=== PATIENT | male | born 1995 ===

== ENCOUNTER 2024-05-29 11:37 | Inpatient (IN) | payer MEDICAID, SELFPAY ==
--- NOTE | 2024-05-29 11:40 | ED.PSYCH ---
HPI - Psych General Chief Complaint: Psychiatric Symptoms Stated Complaint: Crisis Time Seen by Provider: 05/29/24 11:49 Source: patient Mode of arrival: ambulatory Limitations: no limitations History of Present Illness ED Provider: Luann Mak PA-C HPI Narrative: Patient is a 29 year old assigned male at with no reported medical history presenting to the emergency department today requesting to go back to [facility] but he was told to come here first. Patient refuses to explain why he would like to go back to [place] and refuses to answer any questions related to thoughts of hurting self or others. Patient states that he does not have any chest pain, abdominal pain, or any other complaints at this time. Related Data Home Medications ?Medication ?Instructions ?Recorded ?Confirmed aripiprazole 15 mg tablet 15 mg PO BEDTIME 05/30/24 05/30/24 cholecalciferol (vitamin D3) 10 10 mcg PO DAILY 05/30/24 05/30/24 mcg (400 unit) tablet (Vitamin D3) melatonin 5 mg tablet 10 mg PO BEDTIME PRN Insomnia 05/30/24 05/30/24 Allergies Allergy/AdvReac Type Severity Reaction Status Date / Time shrimp Allergy Intermediate Unknown Verified 05/29/24 11:42 Review of Systems Constitutional: Constitutional: Reports no additional constitutional complaints, Denies chills, Denies fever(s) and Denies night sweats Eyes: Eyes: Reports no additional eye complaints, Denies blurry vision, Denies change in vision, Denies diplopia, Denies eye discharge, Denies loss of vision and Denies eye pain ENT: Denies dizziness Cardiovascular: Cardiovascular: Reports no additional cardiovascular complaints, Denies chest pain, Denies lightheadedness, Denies Loss of Consciousness and Denies dyspnea Respiratory: Respiratory: Reports no additional respiratory complaints and Denies dyspnea Gastrointestinal: Gastrointestinal: Reports no additional gastrointestinal complaints, Denies abdominal pain, Denies melena, Denies hematochezia, Denies change in bowel habits and Denies change in stool character Genitourinary: Genitourinary: Reports no additional male genitourinary complaints, Denies hematuria, Denies oliguria, Denies difficulty urinating, Denies dysuria, Denies urinary frequency, Denies urinary hesitancy, Denies urinary incontinence and Denies urinary urgency Musculoskeletal: Musculoskeletal: Reports no additional musculoskeletal complaints, Denies numbness and Denies tingling Neurologic: Denies dizziness, Denies loss of vision, Denies numbness and Denies tingling Psychiatric: Comments: refuses to answer questions but states wants admission at [facility] Endocrine: Endocrine: Reports no additional endocrine complaints Hematologic/Lymphatic: Hematologic/Lymphatic: Reports no additional hematologic/lymphatic complaints Allergic/Immunologic: Allergic/Immunologic: Reports no additional allergic/immunologic complaints [facility] Past Medical History Attestation statement: The following information was validated with the patient. Source: old records reviewed and nursing notes reviewed Social History Social History Advance Directives: No Advance Directives Information Provided: Yes Do you have a plan to hurt others: No Plan Physical Exam Vital Signs: Vital Signs: Last Vital Signs Temp 97.4 F 05/31/24 07:23 Pulse 71 05/31/24 07:23 Resp 14 05/31/24 07:23 BP 127/78 05/31/24 07:23 Pulse Ox 98 05/31/24 07:23 O2 Del Method Room Air 05/31/24 07:23 BMI result Body Mass Index 27.8 Const: General: cooperative, no acute distress, alert and awake Nutritional Appearance: well nourished Orientation/consciousness: patient oriented x3 Limitations: no limitations HEENT: Head: Yes normal to inspection and Yes atraumatic Ears: hearing grossly normal bilaterally and external ears normal General nose exam: Normal external nose present, no nasal discharge noted and no epistaxis Face and sinus: Yes normal facial exam, No abrasion and No laceration Mouth: Normal oral and palatal mucosa present, no drooling and no muffled voice Eyes: General: appearance normal, both eyes and all related structures Periorbital: periorbital findings normal Eyelids: Yes eyelids normal Conjunctivae: conjunctivae normal Pupils: Equal, round and reactive pupils present EOM: EOMs intact bilaterally Neck: Neck: Yes normal visual inspection, Yes full ROM and Yes no lymphadenopathy Chest: Chest palpation & inspection: normal inspection of the chest Resp: Effort & Inspection: normal respiratory effort and able to speak in complete sentences GI: Inspection: Yes normal to inspection Neuro: General: patient oriented x3, moves all extremities and CN's II-XI intact bilaterally Cranial nerves: Yes Equal, round and reactive pupils present Cognition (Neuro): normal cognition Extrem: General: Yes normal to inspection, Yes full ROM and Yes capillary refill normal Psych: Mental Status: mental status grossly normal Affect: Labile affect present Attitude: Guarded attititude/behavior present Thought process: Circumstantial thought process present Course Course Course Narrative: This is a Rapid Medical Exam performed in triage by Marium Delgado PA-C. Full HPI, ROS and PE to be performed by primary ED provider. 29yo M presenting to the ED c/o patient was just d/c'd from [place] & wants to go back inpatient. Denies SI/HI. reports diffuse body pain PE: not engaging in hx, starring off, flat affect Plan: labs, ALVAREZ, CARE team consult Reevaluation(s) Reevaluation #1: 05/30/2024 DR. Quiñones's progress note VSS, no issues overnight reported by nurses, bed search is underway, continue with physician observation. Time: 16:04 Reevaluation #2: Time: 07:23 Date: 05/31/24 Provider: Mary Lamb, DO Patient in physician observation for psychiatric evaluation.? No acute events reported overnight. No current complaints. VS stable.? Patient is in bed search status. Will continue to monitor. Reevaluation #3: Time: 14:54 Date: 05/31/24 Provider: Mary Lamb DO Physician observation ended at 255pm. Patient to be admitted as inpatient to psychiatry Medications Administered Generic Name Dose Route Start Last Admin Trade Name Freq PRN Reason Stop Dose Admin Aripiprazole 15 mg 05/30/24 21:00 05/30/24 20:16 Aripiprazole 15 Mg Tablet PO 15 mg BEDTIME WYATT Administration Melatonin 9 mg 05/30/24 09:58 05/30/24 20:16 Melatonin 3 Mg Tablet PO 9 mg BEDTIME PRN Administration Insomnia Vitamin D 10 mcg 05/30/24 10:00 05/31/24 10:07 Cholecalciferol (Vitamin D3) 10 Mcg Tablet PO 10 mcg DAILY WYATT Administration Medical Decision Making Medical Decision Making MDM Narrative: Patient is a 29 year old assigned male at with no reported medical history presenting to the emergency department today requesting to go back to [facility] but he was told to come here first. Patient's physical exam was as noted in the physical exam portion of this note. Patient's blood work was unremarkable. I explained my physical exam findings as well as all test results to the patient. I answered all questions asked by the patient. Patient placed in observation pending CARE team evaluation. Differential Diagnosis Differential Diagnoses: The differential diagnosis associated with the presentation includes Psychosis SI HI Depression Mental health disorder / disease Admission/Observation Consideration of admission/observation: Escalation of care including admission/observation considered Patient's disposition will be determined after CARE team evaluation. Lab Data [facility] Lab Attestation statement: I reviewed the patient's lab results. My interpretation of these results are in the [facility] Rationale portion of this note. 05/29/24 13:39 05/29/24 13:39 Labs: Lab Results 05/29/24 05/31/24 Range/Units 13:39 10:38 WBC 6.4 (4.8-10.8) X10*3/uL RBC 4.69 (4.60-5.80) X10*6/uL Hgb 14.4 (14.0-18.0) g/dl Hct 40.5 L (42.0-52.0) % MCV 86.4 (80.0-98.0) fL MCH 30.7 (27.0-33.0) pg MCHC 35.6 (31.0-36.0) g/dl RDW 12.6 (11.0-16.0) % Plt Count 225 (160-400) X10*3/uL MPV 9.0 L (9.4-12.4) fL Immature Gran % (Auto) 0.3 (0.0-0.4) % Neut % (Auto) 63.3 (45-73) % Lymph % (Auto) 30.8 (20-40) % Moore % (Auto) 4.4 (2-11) % Eos % (Auto) 0.6 (0-4) % Baso % (Auto) 0.6 (0-2) % Lymph # (Auto) 2.0 (1.2-4.9) X10*3/uL Moore # (Auto) 0.3 (0.1-1.2) X10*3/uL Eos # (Auto) 0.0 (0.0-0.4) X10*3/uL Baso # (Auto) 0.0 (0.0-0.2) X10*3/uL Abs Immat Gran (auto) 0.02 (0.00-0.03) X10*3/uL Absolute Neuts (auto) 4.1 (2.0-8.3) x10*3/uL Absolute Nucleated RBC 0.000 (0.0-0.012) X10*3/uL Nucleated RBC % (auto) 0.0 (0.0-0.2) /100WBC Sodium 139 (135-145) mmol/L Potassium 4.2 (3.3-5.1) mmol/L Chloride 107 (96-108) mmol/L Carbon Dioxide 26 (22-29) mmol/L Anion Gap 10 L (12-20) BUN 12 (9-16) mg/dL Creatinine 0.89 (0.5-1.4) mg/dL Estim Creat Clear Calc 122.6 Estimated GFR > 60 Random Glucose 118 H (60-115) mg/dL Calcium 9.7 (8.4-10.2) mg/dL Total Bilirubin 0.4 (0.0-1.0) mg/dL Direct Bilirubin 0.1 (0.0-0.5) mg/dL AST 40 H (5-37) U/L ALT 48 H (0-40) U/L Alkaline Phosphatase 55 (39-117) U/L Total Protein 7.2 (6.5-8.0) g/dL Albumin 4.5 (3.5-5.0) g/dL Urine Color Yellow Urine Appearance Clear Urine pH 5.5 (5.0-9.0) Ur Specific [place] 1.020 (1.005-1.025) Urine Protein Negative (Neg-Trace) mg/dL Urine Glucose (UA) Negative (Negative) mg/dL Urine Ketones Negative (Negative) mg/dL Urine Blood Negative (Negative) Urine Nitrite Negative (Negative) Ur Leukocyte Esterase Negative (Negative) Urine Opiates Screen Not Detected (Not Detect) Ur Buprenorphine Scrn Not Detected (Not Detect) ng/mL Ur Oxycodone Screen Not Detected (Not Detect) ng/mL Urine Methadone Screen Not Detected (Not Detect) ng/mL Urine Fentanyl Screen Not Detected (Not Detect) Ur Barbiturates Screen Not Detected (Not Detect) Ur Phencyclidine Scrn Not Detected (Not Detect) Ur Amphetamines Screen Not Detected (Not Detect) U Benzodiazepines Scrn Not Detected (Not Detect) Urine Cocaine Screen Not Detected (Not Detect) U Marijuana (THC) Screen Not Detected (Not Detect) Ethyl Alcohol < 10 mg/dL Influenza Type A (PCR) NEGATIVE (Negative) Influenza Type B (PCR) NEGATIVE (Negative) RSV RNA Qual (PCR) NEGATIVE (Negative) SARS-CoV-2 RNA (RT-PCR) NEGATIVE (Negative) Critical Care Time Critical Care Time Critical Care Time: Yes Total Critical Care Time: 31 Attestation: I spent 31 minutes of Critical Care Time with this patient. This does not include time spent on separately reported billable procedures. Discharge Plan Discharge Clinical Impression: Mental health problem Patient Disposition: Admitted As Inpatient Interventions: Herman-Suicide Risk Severity Scale Last Done: 05/30/24 14:03
[2024-05-29 11:41] VITALS: BP 144/95; PULSE 74; RESP 18; TEMP 36.7; O2SAT 99; BMI 27.8
[2024-05-29 12:58] VITALS: RESP 16
[2024-05-29 13:46] LABS: Basophils Percent Auto 0.6 % (0-2); Eosinophils Percent Auto 0.6 % (0-4); Hematocrit 40.5 % (42.0-52.0); Hemoglobin 14.4 g/dl (14.0-18.0); Imm Gran Abs Auto 0.02 X10*3/uL (0.00-0.03); Imm Gran Pct Auto 0.3 % (0.0-0.4); Lymphocytes Percent Auto 30.8 % (20-40); MANUAL DIFF FLAG NO; Mean Corpuscular HGB Conc 35.6 g/dl (31.0-36.0); Mean Corpuscular Hemoglobin 30.7 pg (27.0-33.0); Mean Corpuscular Volume 86.4 fL (80.0-98.0); Monocytes Absolute Auto 0.3 X10*3/uL (0.1-1.2); Monocytes Percent Auto 4.4 % (2-11); Neutrophils Absolute Auto 4.1 x10*3/uL (2.0-8.3); Neutrophils Percent Auto 63.3 % (45-73); Platelet Count 225 X10*3/uL (160-400); Red Blood Count 4.69 X10*6/uL (4.60-5.80); Red Cell Distribution Width 12.6 % (11.0-16.0); White Blood Count 6.4 X10*3/uL (4.8-10.8)
[2024-05-29 14:02] LABS: Ethanol < 10 mg/dL
[2024-05-29 14:05] LABS: Alanine Aminotransferase 48 U/L (0-40); Albumin Level 4.5 g/dL (3.5-5.0); Alkaline Phosphatase 55 U/L (39-117); Anion Gap 10 (12-20); Aspartate Amino Transferase 40 U/L (5-37); Bilirubin Direct 0.1 mg/dL (0.0-0.5); Bilirubin Total 0.4 mg/dL (0.0-1.0); Blood Urea Nitrogen 12 mg/dL (9-16); Calcium 9.7 mg/dL (8.4-10.2); Carbon Dioxide 26 mmol/L (22-29); Chloride 107 mmol/L (96-108); Creatinine Clr Calc Pharmacy 122.6; Estimated Glomerular Filt Rate > 60; Glucose Random 118 mg/dL (60-115); Potassium 4.2 mmol/L (3.3-5.1); Sodium 139 mmol/L (135-145); Total Protein 7.2 g/dL (6.5-8.0)
--- OUTSIDE RECORDS SUMMARY | 2024-05-29 14:27 | XMS_ITS | Clinical Summary ---
Author Organization [facility] Address [address] [place] [address] Care Team Providers Care Application Integration Architect Name Role Phone Claudine Burgos NP Primary Care Provider Source Comments PLEASE NOTE, if this patient is a minor, it may be UNLAWFUL to discuss sensitive information that is contained in these records (such as FAMILY PLANNING, MENTAL HEALTH or SUBSTANCE ABUSE) with the minor patient's parent or other person without the patient's specific authorization.[facility] Allergies No known active allergies Medications ibuprofen 600 mg tabletIndications :Symptomatic irreversible pulpitis Take 1 Tablet by mouth 4 (four) times daily as needed for mild pain 20 Tablet 03/14/2022 Active ARIPiprazole (ABILIFY) 10 mg tabletIndications :Schizoaffective disorder, unspecified type ([facility]) Take 1 Tablet by mouth once daily for 90 days 30 Tablet 2 01/15/2023 Active Active Problems Problem Noted Date Diagnosed Date Schizophrenia ([facility]) 02/20/2022 Encounters Date Type Department Care Team Description 05/28/2024 10:00 AM EDT Office Visit [facility] [address] [place] [id number] Child, BINH Betts Closed fracture dislocation of left wrist, initial encounter (Primary Dx); Non-Telugu speaking patient from Last 3 Months Immunizations Immunization Administration Dates Next Due Flu, Cell Culture based, Multi Dose, 6m+, Flucel vax 11/20/2021 HPV 9 (Gardasil) 04/02/2022 TDAP 04/02/2022 Family History Medical History Relation Name Comments No Known Problems Father Diabetes Maternal Grandmother No Known Problems Mother Bipolar disorder Paternal Uncle Mental illness Paternal Uncle Schizophrenia Paternal Uncle No Known Problems Sister Relation Name Status Comments Father Alive Maternal Grandmother Alive Mother Alive Paternal Uncle Alive Sister Alive Social History Tobacco Use Types Packs/Day Years Used Date Smoking Tobacco: Every Day Cigarettes Tobacco Cessation:Ready to Q uit: Yes; Counseling Given: Yes Alcohol Use Standard Drinks/Week Comments Yes 0 (1 standard drink = 0.6 oz pur e alcohol) Social Social Connections Answer Date Recorded Connectedness 0 02/20/2022 Financial Resource Strain Answer Date R ecorded Financial Resource Strain 0 2021 Stress Answer Date Recorded Stress 0 02/20/2022 Physical Activity Answer Date Recorded Physical Activity 0 02/20/2022 Food Insecurity Answer Date Recorded Food 0 02/20/2022 Transportation Needs Answer Date Record ed Transportation 0 02/20/2022 Housing Stability Answer Date Recorded Housing 0 02/20/2022 Safety and Environment Answer Date Cam rded Safety 0 02/20/2022 Utilities Answer Date Recorded Utilities 0 02/20/2022 Employment Answer Date Recorded Employment 0 02/20/2022 Sex and Gender Information Value Date Recorded Sex Assigned at Male 02/20/2022 11:52 AM PST Legal Sex Male 6:49 AM PDT Gender Identity Male 02/20/2022 11:52 AM PST Sexual Orientation Bisexual 02/20/2022 11 :52 AM PST Occupation Industry Job Start Date Job End Date [employer] Not on file Not on file Not on file Last Filed Vital Signs Vital Sign Reading Time Taken Comments Blood Pressure 139/91 05/28/2024 8:52 AM EDT Pulse 73 05/28/2024 8:52 AM EDT Temperature 37.2 ??C (98.9 ??F) 05/28/2024 8:52 AM ED T Respiratory Rate 18 05/28/2024 8:52 AM EDT Oxygen Saturation 98% 05/22/2023 11:29 AM EDT Inhaled Oxygen Concentration - - Weight 78.5 kg (173 lb) 05/28/2024 8:52 AM EDT Height 175 cm (5' 8.9 ) 05/28/2024 8:52 AM EDT Body Mass Index 25.62 05/28/2024 8:52 AM EDT Plan of Treatment Health Maintenance Due Date Last Done Comments Anxiety Screening 1997 Imm-Hepatitis A (1 of 2 - Ri sk 2-dose series) 01/17/2016 Imm-Hepatitis B (1 of 3 - 19 + 3-dose series) 01/17/2016 Imm-Pneumococcal (1 of 2 - PCV) 01/17/2016 Annual Preventive Care Visit 02/20/2023 02/20/2022 Tobacco Cessation Counseling (#1) 02/20/2023 022 Dental BW 03/16/2023 03/14/2022 Dental Examination 03/16/2023 03/14/2022 Dental Perio Charting 03/16/2023 03/14/2022 Dental Prophy 03/16/2023 03/14/2022 Aze-HXNMD-02 ( season) 2023 Imm-Influenza (#1) 2023 11/20/2021 Alcohol and Drug Screen 02/25/2024 02/20/2022 Depression Annual Screen 02/25/2024 05/22/2023 HIV Screening 05/21/2024 05/22/2023, 11/24, 03/12/2022 Syphilis Screening 05/21/2024 05/22/2023, 1 04/03/2022, 12/12/2022, Additional history exists Hypertension Screening (#1) 05/28/2025 Dental FMX/Pano 03/16/2027 03/14/2022 Imm-DTaP/Tdap/Td (2 - Td or Tdap) 04/02/2032 023 Hepatitis B Screening Completed 05/22/2023 , 03/12/2022, 03/12/2022 Hepatitis C Screening Completed 05/22/2023, 023 Procedures Procedure Name Priority Date/Time Associated Diagnosis Comments HIV 1/2 AG & AB W/RFLX (4TH GEN) Routine 05/22/2023 1:03 PM EDT Screening examination for venereal disease RPR (MONITOR) W/REFL TITER Routine 05/22/2023 1:03 PM EDT Screening examination for venereal disease HEPATITIS PANEL Routine 05/22/2023 1:03 PM EDT Screening examination for venereal disease INTRAORAL - COMP SERIES OF RADIOGRAPHIC IMAGES Routine 03/14/2022 10:20 AM EST Gingivitis, chronic, plaque induced PROPHYLAXIS - ADULT Routine 03/14/2022 1 0:20 AM EST Gingivitis, chronic, plaque induced COMP ORAL EVALUATION - NEW/ESTABLISHED PATIENT Routine 03/14/2022 10:20 AM EST Gingivitis, chronic, plaque induced from Last 3 Months or Most Recently Relevant to Health Maintenance Results * HIV 1/2 AG & AB W/RFLX (4TH GEN) (05/22/2023 1:03 PM EDT) HIV AG/AB, 4TH GEN NON-REAC TIVE NON-REAC TIVE [employer] [facility] Comment: HIV-1 antigen and HIV-1/HIV-2 antibodies were not detected. There is no laboratory evidence of HIV infection. PLEASE NOTE: This information has been disclosed to you from records whose confidentiality may be protected by state law. ??If your state requires such protection, then the state law prohibits you from making any further disclosure of the information without the specific written consent of the person to whom it pertains, or as otherwise permitted by law. A general authorization for the release of medical or other information is NOT sufficient for this purpose. ?? For additional information please refer to http://education.Note/faq/GVY715 (This link is being provided for informational/ educational purposes only.) The performance of this assay has not been clinically validated in patients less than 2 years old. Blood Blood / Unknown 05/22/2023 1 :03 PM EDT 05/22/2023 1:03 PM EDT [facility] - BLOOD DRAW Final Result [facility] [address] [address], [employer] [address] [address] * HEPATITIS PANEL (05/22/2023 1:03 PM EDT) Pathologist [facility] HEPATITIS A AB, TOTAL NON-REACT JEWELS NON-REACT JEWELS [employer] [facility] COMMENT [employer] [facility] HEPATITIS B SURFACE ANTIBODY QL NON-REACT JEWELS NON-REACT JEWELS [employer] [facility] HEPATITIS B SURFACE ANTIGEN NON-REACT JEWELS NON-REACT JEWELS [employer] [facility] COMMENT [employer] [facility] HEPATITIS B CORE AB TOTAL NON-REACT JEWELS NON-REACT JEWELS [employer] [facility] HEPATITIS C ANTIBODY NON-REACT JEWELS NON-REACT JEWELS [employer] [facility] Comment: HCV antibody was non-reactive. There is no laboratory evidence of HCV infection. In most cases, no further action is required. However, if recent HCV exposure is suspected, a test for HCV RNA (test code 66527) is suggested. For additional information please refer to http://[employer] [place].Note/faq/DMH09f8 (This link is being provided for informational/ educational purposes only.) COMMENT [employer] [facility] Blood Blood / Unknown 05/22/2023 1 :03 PM EDT 05/22/2023 1:03 PM EDT Narrative [facility] - 05/24/2023 5:13 PM EDT For additional information, please refer to http://[employer]/faq/PQE635 (This link is being provided for informational/ educational purposes only.) For additional information, please refer to http://[employer]/faq/JYJ222 (This link is being provided for informational/ educational purposes only.) For additional information, please refer to http://[employer]ic[employer]/faq/QGZ164 (This link is being provided for informational/ educational purposes only.) us [facility] - BLOOD DRAW Final Result [employer] [address] [address], [employer] [address] [address] * RPR (MONITOR) W/REFL TITER (05/22/2023 1:03 PM EDT) RPR (MONITOR) W/REFL TITER NON-REACT JEWELS NON-REACT JEWELS [employer] [facility] Blood Blood / Unknown 05/22/2023 1 :03 PM EDT 05/22/2023 1:03 PM EDT us [facility] - BLOOD DRAW Edited Result - Final [facility] [address] [address], [facility] [address] [place] [address] from Last 3 Months or Most Recently Relevant to Health Maintenance Insurance [place] DENTAL [place] Care Teams Application Integration Architect Relationship Specialty Start Date End Date Claudine Burgos NP [address] [place] [address] PCP - General Internal Medicine 02/20/22
--- OUTSIDE RECORDS SUMMARY | 2024-05-29 14:27 | XMS_ITS | Clinical Summary ---
Author Organization [employer] Address [address] [place] [address] Care Team Providers Care Head Of Partner Development Name Role Phone Unavailable Primary Care Provider Unavailabl e Allergies No known active allergies Medications ARIPiprazole (Abilify) 5 MG tablet Take 5 mg by mouth in the morning. 12/24/2022 Active ibuprofen 600 MG tablet Take 1 tablet (600 mg) by mouth every 6 (six) hours if needed for mild pain for up to 20 doses. 20 tablet 01/20/2024 Active Social History Tobacco Use Types Packs/Day Years Used Date Smoking Tobacco: Never Passive Smoke Exposure: Never Smokeless Tobacco: Never Tobacco Cessation:Counseling Given: Not Answered Sex and Gender Information Value Date Recorded Sex Assigned at Male 12/03/2022 1:20 PM EDT Legal Sex Male 1:07 PM EDT Gender Identity Male 12/03/2022 1:20 PM EDT Sexual Orientation Choose not to disclose 2022 1:20 PM EDT Last Filed Vital Signs Vital Sign Reading Time Taken Comments Blood Pressure 104/66 12/24/2022 9:07 AM EDT Pulse 65 12/24/2022 9:07 AM EDT Temperature - - Respiratory Rate - - Oxygen Saturation - - Inhaled Oxygen Concentration - - Weight - - Height - - Body Mass Index - - Plan of Treatment Health Maintenance Due Date Last Done Comments Dental Oral Exam 1997 Depression Screening 1997 SDOH Screening 1997 Alcohol/Substance Use Screening 2009 Family Planning (PISQ) 01/17/2012 Hepatitis C Screening 2015 Hepatitis B Vaccines (1 of 3 - 19+ 3-dose series) 01/17/2016 HPV Vaccines (2 - Male 3-dos e series) 04/30/2022 04/02/2022 Dental Prophylaxis 06/25/2023 12/24/2022 COVID-19 Vaccine (3 - 2023-2 5 season) 2023 12/11/2021, 03/15/2021 Influenza Vaccine (#1) 2023 11/20/2021 Dental X-Ray: Bitewings 12/26/2023 12/25/19, 12/05/2022 Tobacco Screening 01/19/2025 01/20/2024 Dental X-Ray: Full Mouth 01/20/2027 024, 12/24/2022 DTaP/Tdap/Td Vaccines (2 - T d or Tdap) 04/02/2032 04/02/2022 Zoster Vaccines (1 of 2) 2047 RSV Patients and Patients Aged 60 years or older (1 - 1-dose 75+ series) 01/17/2072 HIV Screening Completed 05/22/2023, 12/12/2022, 03/12/2022 HIB Vaccines Aged Out No longer eligi ble based on patient's age to complete this topic Hepatitis A Vaccines Aged Out No long er eligible based on patient's age to complete this topic IPV Vaccines Aged Out No longer eligi ble based on patient's age to complete this topic Meningococcal Vaccine Aged Out No luz mila eligible based on patient's age to complete this topic Pneumococcal Vaccine: Pediatrics (0 to 5 Years) and At-Risk Patients (6 to 49) Years) Aged Out No longer eligible b ased on patient's age to complete this topic RSV under 20 months Aged Out No longe r eligible based on patient's age to complete this topic Rotavirus Vaccines Aged Out No longer eligible based on patient's age to complete this topic Procedures Procedure Name Priority Date/Time Associated Diagnosis Comments PANORAMIC RADIOGRAPHIC IMAGE Routine 01/20/2024 2:00 PM EST Pericoronitis PROPHYLAXIS - ADULT Routine 12/24/2022 9 :00 AM EDT INTRAORAL - COMPLETE SERIES OF RADIOGRAPHIC IMAGES Routine 12/24/2022 9:00 AM EDT from Last 3 Months or Most Recently Relevant to Health Maintenance Insurance D[facility]AL-[facility] MEDICAID LIMITED ADULT DENTAL - HSN FULL (MEDICAID) [place]IE [place]LE[place] [id number]
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
[2024-05-29 14:31] LABS: Influenza A PCR NEGATIVE (Negative); Influenza B PCR NEGATIVE (Negative); Resp Syncy Virus RNA Qual PCR NEGATIVE (Negative); SARS COV2 PCR INHOUSE NEGATIVE (Negative)
[2024-05-30 04:02] VITALS: BP 129/77; PULSE 62; RESP 16; TEMP 36.2; O2SAT 99
[2024-05-30 06:00] VITALS: RESP 16
--- NOTE | 2024-05-30 07:11 | PC.NURSE ---
Assumed care of patient at 0645, patient appears to be in no apparent distress today, ambulating around BH pod, eating breakfast, offering no complaints to this RN. Continue plan of care for BHN initiated IPLOC
--- NOTE | 2024-05-30 08:13 | PHA.MEDREC ---
Pharmacy Consult ? Medication Reconciliation Pharmacy has completed the medication reconciliation. Reviewed med rec done by nursing (Jennifer).
[2024-05-30] MEDS: Cholecalciferol (Vitamin D3) 10 MCG TABLET PO (10:47)
--- NOTE | 2024-05-30 11:55 | PC.NURSE ---
Patient had mom and friend visit. patient has been calm and cooperative thus far this morning, patient showered, patient now sitting in milieu coloring with other patients
[2024-05-30 18:00] VITALS: BP 118/76; PULSE 84; RESP 14; O2SAT 97
--- NOTE | 2024-05-30 20:00 | PC.NURSE ---
patient calm, cooperative attempts to be helpfulto staff, pleasant cooperative, taking shower and cleaning up presently.
[2024-05-30] MEDS: ARIPiprazole 15 MG TABLET PO (20:16)
[2024-05-30] MEDS: Melatonin 3 MG TABLET 9 MG PO (20:16)
--- NOTE | 2024-05-31 | ECG_ITS ---
Test Reason : check qt Blood Pressure : */* mmHG Vent. Rate : 69 BPM Atrial Rate : 69 BPM P-R Int : 146 ms QRS Dur : 88 ms QT Int : 368 ms P-R-T Axes : 64 11 36 degrees QTcB Int : 394 ms Normal sinus rhythm Inferior infarct , age undetermined Abnormal ECG No previous ECGs available Referred By: Mary Lamb Electronically Signed By: Vince Martin
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
[2024-05-31 07:23] VITALS: BP 127/78; PULSE 71; RESP 14; TEMP 36.3; O2SAT 98
[2024-05-31] MEDS: Cholecalciferol (Vitamin D3) 10 MCG TABLET PO (10:07)
[2024-05-31 10:54] LABS: Appearance Urine Clear; Color Urine Yellow; Glucose Urine UA Negative (Negative); Leukocyte Esterase Urine Negative (Negative); Nitrite Urine Negative (Negative); PH 5.5 (5.0-9.0); Urine Blood Negative (Negative); Urine Ketones Negative (Negative); Urine Protein Negative (Neg-Trace)
[2024-05-31 11:02] LABS: Amphetamine Screen Urine Not Detected (Not Detect); Barbiturates, Urine Not Detected (Not Detect); Benzodiazepines Screen Urine Not Detected (Not Detect); Buprenorphine Scr Not Detected (Not Detect); Cannabinoid Screen Urine Not Detected (Not Detect); Cocaine Screen Urine Not Detected (Not Detect); Fentanyl, urine Not Detected (Not Detect); Methadone Screen, Urine Not Detected (Not Detect); Opiate Screen Urine Not Detected (Not Detect); Oxycodone Screen Urine Not Detected (Not Detect); Phencyclidine Screen Urine Not Detected (Not Detect)
--- NOTE | 2024-05-31 19:30 | PC.ADMIT ---
Chong Taylor is a 29 year old male admitted to from [facility] after being evaluated by N crisis in the community for increased confusion, impaired memory and endorsing auditory and visual hallucinations. Chong arrived to the unit at 15:55,alert and oriented x 3, skin check was unremarkable. Chong speaks luxembour[place] as a second language and primary language is Wolof, assessment was easily done in Romanian. Provider met with him utilizing the [employer] claim service representative to ensure that he understood his rights and legal status. Chong refused to sign in voluntarily and remains a 12B he refused to sign any documents including releases & valuables statement. He was mostly cooperative with the admission process, inappropriate smiling noted at times, slightly paranoid regarding disclosing personal information. The only information that he disclosed is that he, ?liked sex?, when asked what his triggers were, he reported ?not getting sex? Chong was recently at [place] [facility] from 05/13-05/25/24 however per eval his mother stated that she tried on several occasions to have his prescriptions filled and the insurance was not accepted. Per CARE team assessment Chong reported trouble sleeping and felt as though someone was watching him. Chong?s mother reported that he was not at baseline and felt that he was released too early. During assessment Chong stated that he is a smoker and has already received a flu vaccine this year. Chong denies all psych symptoms. He was oriented to the unit and placed on 15 minute checks for safety.
[2024-05-31 20:00] VITALS: RESP 16
--- NOTE | 2024-06-01 15:53 | HO.PSYADMNOT ---
HPI Date of Service: 06/01/24 Chief Complaint: psychosis Sources of Information: patient interviewed, chart reviewed and crisis/core team assessment reviewed Additional Sources of Information: Seen 1540 Pt asked to be seen in the milieu, declined a private meeting. HPI Subjective Notes: Conditional Voluntary Healthcare Proxy: No Guardianship: No Medical Problems Affecting Mental Status: No Narrative: 29 yo male, hx of bipolar disorder, to ER with [facility] Crisis with sx of increased confusion, paranoia, memory impairment, +AH, +VH. [facility] reports pt was discharged from [facility] 05/25. He was not able to fill his medications upon discharge. Mother tells crisis that current sx are not a baseline presentation for pt. She reports wanting to have pt go to [place] with her (family home) but he has declined. Pt is in the common area when seen. He is alert, oriented to person and writing song lyrics, which he sings to tw. Past Psychiatric History: IP: Discharge 05/25 from [facility] Medical Evaluation Reviewed: Yes [facility] Medical History (Updated 06/01/24 @ 16:12 by Toña Mendoza, JASON) Alcohol use disorder Cannabis use disorder Bipolar disorder Substance History: alcohol, cannabis Diagnostics Vital Signs (24Hr): Vital Signs - 24 hr 05/31/24 20:00 Respiratory Rate 16 BMI result Body Mass Index 27.8 Labs 05/29/24 13:39 05/29/24 13:39 Labs: Laboratory Results - last 48 hr 05/31/24 10:38 Urine Color Yellow Urine Appearance Clear Urine pH 5.5 Ur Specific [place] 1.020 Urine Protein Negative Urine Glucose (UA) Negative Urine Ketones Negative Urine Blood Negative Urine Nitrite Negative Ur Leukocyte Esterase Negative Urine Opiates Screen Not Detected Ur Buprenorphine Scrn Not Detected Ur Oxycodone Screen Not Detected Urine Methadone Screen Not Detected Urine Fentanyl Screen Not Detected Ur Barbiturates Screen Not Detected Ur Phencyclidine Scrn Not Detected Ur Amphetamines Screen Not Detected U Benzodiazepines Scrn Not Detected Urine Cocaine Screen Not Detected U Marijuana (THC) Screen Not Detected Meds/Allergies Meds Home Medications ?Medication ?Instructions ?Recorded ?Confirmed ?Type aripiprazole 15 mg tablet 15 mg PO BEDTIME 05/30/24 05/30/24 History cholecalciferol (vitamin D3) 10 10 mcg PO DAILY 04/06/25 04/06/25 History mcg (400 unit) tablet (Vitamin D3) melatonin 5 mg tablet 10 mg PO BEDTIME PRN Insomnia 05/30/24 05/30/24 History Allergies Allergies Allergy/AdvReac Type Severity Reaction Status Date / Time shrimp Allergy Intermediate Unknown Verified 05/29/24 11:42 Mental Status Exam Mental Status Exam Patient Appearance: Appropriate Patient Orientation: Person, Place and Situation Level of Consciousness: Alert Patient Behavior: Appropriate, Talkative, Hyperactive, Hypersexual, Distractible and Good Eye Contact Mood Description: Cheerful and Labile Affect Description: Labile Patient Cognition Impaired: No Ability to Follow Directions: Good Speech Pattern: Spontaneous Speech Memory Description: Episodic Impaired Hallucinations: None Delusions: Present Thought Process: Racing Thought Content: positive for Racing, positive for Tangential and positive for Suicidal Ideation (denies) Judgement: Fair Assessment & Plan Assessment & Plan (1) Bipolar disorder: Status: Acute Code(s): F31.9 - Bipolar disorder, unspecified (2) Cannabis use disorder: Status: Acute Code(s): F12.90 - Cannabis use, unspecified, uncomplicated (3) Alcohol use disorder: Status: Acute Code(s): F10.90 - Alcohol use, unspecified, uncomplicated Plan Admit, CV, 15 minute checks Collateral Contact Diagnostics as needed. Re-establish recent regime Pt education on meds, treatment Encourage milieu participation. Patient educated on: therapeutic strategies Reason for continued inpatient stay Substantial Risk for: rapid decompensation Statement Statement: I have reviewed the history and physical and performed a pertinent examination on my patient. No changes have occurred unless specified. If the History and Physical was not performed prior to admission, the Hospitalist's service will be consulted for completing the admission physical. Time Spent With Patient Time: Total time managing care of this patient today ____ minutes.
[2024-06-01 20:00] VITALS: BP 151/88; PULSE 93; TEMP 36.7; O2SAT 93
[2024-06-01] MEDS: ARIPiprazole 15 MG TABLET PO (20:30)
[2024-06-01] MEDS: Fluticasone Propionate Nasal 16 GM SPRAY 1 SPRAY NOSTRIL-B (20:32)
[2024-06-02] MEDS: Cholecalciferol (Vitamin D3) 10 MCG TABLET PO (07:48)
[2024-06-02] MEDS: Fluticasone Propionate Nasal 16 GM SPRAY 1 SPRAY NOSTRIL-B ×2 (07:49→21:13)
[2024-06-02 07:58] VITALS: RESP 16
--- NOTE | 2024-06-02 09:33 | P.PNPSI_ITS ---
Subjective Subjective Date of Service: 06/02/24 Reason For Visit: psychosis Subjective Notes: Section 12B (06/03) Healthcare Proxy: No Guardianship: No Medical Problems Affecting Mental Status: No Interim History: Denies psychiatric sx. Declined medications-however, accepting some on occasion. Team reports no sx of behavioral dyscontrol. Wanting dc. Unable to reach family for collateral contact. Denies SI,HI, AH,VH. No sx of acute psychosis or zenon Medication Compliance: Intermittent Side effects from medications: No Attending Groups: No Review of Systems Acute medical concerns: No Review of Systems Review of Systems Denies Mental Status Exam Mental Status Exam Patient Appearance: Appropriate Patient Orientation: Person, Place and Situation Level of Consciousness: Alert Patient Behavior: Appropriate, Talkative, Distractible and Good Eye Contact Mood Description: Anxious, Labile and Apprehensive Affect Description: Anxious, Labile and Apprehensive Patient Cognition Impaired: No Ability to Follow Directions: Good Speech Pattern: Spontaneous Speech Memory Description: Episodic Impaired Hallucinations: None Thought Process: Distracted Thought Content: positive for Circumstantial and positive for Suicidal Ideation (denies) Depressive Symptoms: Thoughts of /Suicide (denies) Judgement: Fair Diagnostics Vital Signs (24Hr): Vital Signs - 24 hr 06/01/24 20:00 06/02/24 07:58 Temperature 98.1 F Pulse Rate 93 Respiratory Rate 16 Blood Pressure 151/88 H Pulse Oximetry 93 Oxygen Delivery Method Room Air BMI result Body Mass Index 27.8 Labs 05/29/24 13:39 05/29/24 13:39 Labs: Laboratory Results - last 48 hr 05/31/24 10:38 Urine Color Yellow Urine Appearance Clear Urine pH 5.5 Ur Specific [place] 1.020 Urine Protein Negative Urine Glucose (UA) Negative Urine Ketones Negative Urine Blood Negative Urine Nitrite Negative Ur Leukocyte Esterase Negative Urine Opiates Screen Not Detected Ur Buprenorphine Scrn Not Detected Ur Oxycodone Screen Not Detected Urine Methadone Screen Not Detected Urine Fentanyl Screen Not Detected Ur Barbiturates Screen Not Detected Ur Phencyclidine Scrn Not Detected Ur Amphetamines Screen Not Detected U Benzodiazepines Scrn Not Detected Urine Cocaine Screen Not Detected U Marijuana (THC) Screen Not Detected Medications Medications Current Medications Acetaminophen (Acetaminophen 325 Mg Tablet) 650 mg PO Q6H PRN PRN Reason: Headache/Pain, Scale 1-10 Al Hydroxide/Mg Hydroxide (Magnesium Hydrox/Alum Hydrox 30 Ml Oral.Susp) 30 ml PO Q6H PRN PRN Reason: Heartburn/Nausea Aripiprazole (Aripiprazole 15 Mg Tablet) 15 mg PO BEDTIME [facility] Last Admin: 06/01/24 20:30 Dose: 15 mg Fluticasone Propionate (Fluticasone Propionate Nasal 16 Gm [place]) 1 spray NOSTRIL-B BID [facility] Last Admin: 06/02/24 07:49 Dose: 1 spray Hydroxyzine HCl (Hydroxyzine Hcl 25 Mg Tablet) 25 mg PO Q6H PRN PRN Reason: mild anxiety Magnesium Hydroxide (Milk Of Magnesia 30 Ml Oral.Susp) 30 ml PO DAILY PRN PRN Reason: Constipation Melatonin (Melatonin 3 Mg Tablet) 9 mg PO BEDTIME PRN PRN Reason: Insomnia Last Admin: 05/30/24 20:16 Dose: 9 mg Nicotine (Nicotine 21 Mg Patch.Td24) 21 mg TRANSDERMA DAILY PRN PRN Reason: smoking cessation Nicotine Polacrilex (Nicotine Polacrilex 2 Mg Gum) 4 mg BUCCAL Q2H PRN PRN Reason: Nicotine Cravings Olanzapine (Olanzapine 5 Mg Tablet) 5 mg PO TID PRN PRN Reason: agitation Trazodone HCl (Trazodone Hcl 50 Mg Tablet) 50 mg PO BEDTIME MRX1 PRN PRN Reason: Insomnia Vitamin D (Cholecalciferol (Vitamin D3) 10 Mcg Tablet) 10 mcg PO DAILY [facility] Last Admin: 06/02/24 07:48 Dose: 10 mcg Allergies Allergies Allergy/AdvReac Type Severity Reaction Status Date / Time shrimp Allergy Intermediate Unknown Verified 05/29/24 11:42 Assessment & Plan Assessment & Plan (1) Bipolar disorder: Status: Acute Code(s): F31.9 - Bipolar disorder, unspecified (2) Cannabis use disorder: Status: Acute Code(s): F12.90 - Cannabis use, unspecified, uncomplicated (3) Alcohol use disorder: Status: Acute Code(s): F10.90 - Alcohol use, unspecified, uncomplicated Plan Admit, CV, 15 minute checks Collateral Contact Diagnostics as needed. Re-establish recent regime Pt education on meds, treatment Encourage milieu participation. 06/02- Probable DC 06/03 at the expiration of Section XIIB Team is attempting to reach pt's mother in [place]. Reason for continued inpatient stay Substantial Risk for: rapid decompensation Time Spent With Patient Time: Total time managing care of this patient today ____ minutes.
[2024-06-02] MEDS: Melatonin 3 MG TABLET 9 MG PO (21:13)
[2024-06-02] MEDS: ARIPiprazole 15 MG TABLET PO (21:13)
[2024-06-03] MEDS: Magnesium Hydrox/Alum Hydrox 30 ML ORAL.SUSP PO ×2 (00:16→08:34)
[2024-06-03 08:30] VITALS: BP 114/65; O2SAT 83
[2024-06-03] MEDS: Cholecalciferol (Vitamin D3) 10 MCG TABLET PO (08:34)
[2024-06-03] MEDS: Fluticasone Propionate Nasal 16 GM SPRAY 1 SPRAY NOSTRIL-B (08:34)
--- NOTE | 2024-06-03 09:49 | PM.PSYDC ---
DS: Providers Provider Date of admission: 05/31/24 14:27 Primary care physician: None Physician DS: Diagnosis Discharge Diagnosis (1) Bipolar disorder: Status: Acute (2) Cannabis use disorder: Status: Acute (3) Alcohol use disorder: Status: Acute DS: Medications Discharge Medications Home Medications: Home Medications ?Medication ?Instructions ?Recorded ?Confirmed aripiprazole 15 mg tablet 15 mg PO BEDTIME 05/30/24 05/30/24 cholecalciferol (vitamin D3) 10 10 mcg PO DAILY 05/30/24 05/30/24 mcg (400 unit) tablet (Vitamin D3) melatonin 5 mg tablet 10 mg PO BEDTIME PRN Insomnia 05/30/24 05/30/24 Data Data Completed and Pending Completed studies during hospitalization [Text1]: 05/29/24 05/31/24 13:39 10:38 WBC 6.4 RBC 4.69 Hgb 14.4 Hct 40.5 L MCV 86.4 MCH 30.7 MCHC 35.6 RDW 12.6 Plt Count 225 MPV 9.0 L Immature Gran % (Auto) 0.3 Neut % (Auto) 63.3 Lymph % (Auto) 30.8 [place] % (Auto) 4.4 Eos % (Auto) 0.6 Baso % (Auto) 0.6 Lymph # (Auto) 2.0 [place] # (Auto) 0.3 Eos # (Auto) 0.0 Baso # (Auto) 0.0 Abs Immat Gran (auto) 0.02 Absolute Neuts (auto) 4.1 Absolute Nucleated RBC 0.000 Nucleated RBC % (auto) 0.0 Sodium 139 Potassium 4.2 Chloride 107 Carbon Dioxide 26 Anion Gap 10 L BUN 12 Creatinine 0.89 Estim Creat Clear Calc 122.6 Estimated GFR > 60 Random Glucose 118 H Calcium 9.7 Total Bilirubin 0.4 Direct Bilirubin 0.1 AST 40 H ALT 48 H Alkaline Phosphatase 55 Total Protein 7.2 Albumin 4.5 Urine Color Yellow Urine Appearance Clear Urine pH 5.5 Ur Specific [place] 1.020 Urine Protein Negative Urine Glucose (UA) Negative Urine Ketones Negative Urine Blood Negative Urine Nitrite Negative Ur Leukocyte Esterase Negative Urine Opiates Screen Not Detected Ur Buprenorphine Scrn Not Detected Ur Oxycodone Screen Not Detected Urine Methadone Screen Not Detected Urine Fentanyl Screen Not Detected Ur Barbiturates Screen Not Detected Ur Phencyclidine Scrn Not Detected Ur Amphetamines Screen Not Detected U Benzodiazepines Scrn Not Detected Urine Cocaine Screen Not Detected U Marijuana (THC) Screen Not Detected Ethyl Alcohol < 10 Influenza Type A (PCR) NEGATIVE Influenza Type B (PCR) NEGATIVE RSV RNA Qual (PCR) NEGATIVE SARS-CoV-2 RNA (RT-PCR) NEGATIVE DS: Summary Time Spent with Patient Time attestation: Total time managing care of this patient today ____ minutes. Discharge Plan Discharge Referrals: [facility] [Other] - 1 Week (Skilled Nursing resources ) [facility], [facility] [Other] - 1 Week (Skilled Nursing resources) [facility] ([facility]) [facility] [Other] - 1 Week (Patient may self present to [facility] for evaluation to be connected with outpatient psychiatry and therapy services Hours for evaluation are Friday through Friday 10am-12 pm.) [facility] ([facility]) [facility] [Other] - 1 Week (Patient may self present for evaluation to be connected with outpatient therapy and psychiatric services Hours for evaluation are Friday-Friday 8 am- 8 pm. Friday 9am -5 pm.) [facility] Crisis [Other] - 1 Week (Crisis services telephone number.) Physician,None [Primary Care Provider] - 1 Week Discharge Medications: No Action cholecalciferol (vitamin D3) [Vitamin D3] 10 mcg (400 unit) tablet 10 mcg PO DAILY aripiprazole 15 mg tablet 15 mg PO BEDTIME melatonin 5 mg tablet 10 mg PO BEDTIME PRN (Reason: Insomnia) Stand Alone Forms: Work/School Release Print Language: Azeri
== END 2024-06-03 11:48 | disposition home or self-care (01) | DRG 753 ==
LOC: HO.ED 05-31 09:20 → HO.PM5 05-31 14:36
PROVIDERS: Emergency Medicine Emergency Medical Services; Physician Assistant; Admitting Provider Psychiatry & Neurology Psychiatry; Emergency Provider Emergency Medicine; Visit Provider Psychiatry & Neurology Psychiatry
DX: F31.9 Bipolar disorder, unspecified (principal); F10.90 Alcohol use, unspecified, uncomplicated; F12.90 Cannabis use, unspecified, uncomplicated; F17.210 Nicotine dependence, cigarettes, uncomplicated; Z71.6 Tobacco abuse counseling; Z20.822 Contact with and (suspected) exposure to COVID-19
CPT/HCPCS: 0241U; 36415; 80048; 80076; 80307; 81003; 85025; 93005; 99285; S9485

== ENCOUNTER → 2024-05-31 13:09 | Outpatient (BNV) | payer MEDICAID, SELFPAY | PROVIDERS: Admitting Provider Psychiatry & Neurology Psychiatry; Emergency Provider Emergency Medicine; Visit Provider Internal Medicine Cardiovascular Disease | DX: R94.31 Abnormal electrocardiogram [ECG] [EKG] (principal); Z13.6 Encounter for screening for cardiovascular disorders | CPT/HCPCS: 93010 ==

== ENCOUNTER → 2024-05-31 14:27 | Outpatient (BNV) | payer OTHER, SELFPAY | PROVIDERS: Admitting Provider Psychiatry & Neurology Psychiatry; Emergency Provider Emergency Medicine; Visit Provider Clinical Nurse Specialist Psychiatric/Mental Health, Adult | DX: F31.9 Bipolar disorder, unspecified (principal); F12.90 Cannabis use, unspecified, uncomplicated; F10.90 Alcohol use, unspecified, uncomplicated | CPT/HCPCS: 99231; 99232 ==